=== PATIENT | male | born 1940 | race Caucasian/White ===

== ENCOUNTER 2018-02-08 01:29 | Emergency (ER) | payer MEDICARE ==
[~2018-02-08 01:29] MED LIST: ALPR-138 PO; LEVO75TA42 PO; LISI5 PO; TAB-TAB PO
[2018-02-08 01:31] VITALS: BP 200/84; PULSE 74; RESP 18; TEMP 97.5; O2SAT 99
[2018-02-08 02:18] VITALS: BP 209/92; PULSE 67; RESP 17; O2SAT 98
[2018-02-08 02:19] VITALS: BP 215/98; PULSE 74
[2018-02-08] MEDS ORDERED: LEVO75TA3 PO (02:23)
[2018-02-08] MEDS ORDERED: ALPR1TAB3 PO (02:23)
[2018-02-08] MEDS ORDERED: LISI10TA3 PO (02:23)
[2018-02-08] MEDS ORDERED: HYDR12.57 PO (02:23)
[2018-02-08] MEDS ORDERED: SIMV40TA PO (02:23)
--- NOTE | 2018-02-08 02:39 | PD ---
HPI Chief Complaint: Abdominal Pain Time Seen by Provider: 02:05 Travel History International Travel<30 days: No Contact w/Intl Traveler<30days: No Traveled to known affect area: No History of Present Illness HPI Patient is a 77-year-old male who 1130 tonight developed sudden onset of suprapubic pressure-like pain. It does not radiate it is not associated with dysuria he has moved his bowels in the waiting room without any complaints and no change in the pain he is not constipated he is no diarrhea he has no dysuria. He has a history of having renal stone many years ago which needed lithotripsy however he says the pain is very different. He has no history of diverticulitis. He has a history of CABG many years ago. He is only on lisinopril 5 mg and hydrochlorothiazide 12.5 mg and a statin otherwise he is a healthy 77-year-old male. Again localized pain suprapubic sudden onset constant for the last 3 and half hours nothing his change the pain nothing has made it better nothing has made it worse when he moved his bowels it did not change the pain PFSH Past Medical History Blood Disorders: No Cancer: Yes (SKIN) Cardiovascular Problems: Yes High Cholesterol: Yes Diabetes: No Diminished Hearing: No Endocrine: No Genitourinary: Yes Hypertension: Yes Immune Disorder: No Kidney Stones: Yes (LITHOTRIPSY X 3 LAST 2013) Musculoskeletal: No Neurologic: No Psychiatric: No Reproductive: No Respiratory: No Immunizations Current: Yes Radiation Therapy: Yes (SKIN CANCER 2010) Past Surgical History Abdominal Surgery: No Cardiac Surgery: Yes (2009 TRIPLE BYPASS) Coronary Artery Bypass Graft: Yes (02/05 X 3 VESSELS) Ear Surgery: Yes (cancer right ear lesion removed) Endocrine Surgery: No Eye Surgery: No Genitourinary Surgery: No Gynecologic Surgery: No Oral Surgery: Yes (dentures) Thoracic Surgery: No Other Surgery: Yes (hemroidectomy) Social History Alcohol Use: No Tobacco Use: No Substance Use: No Allergies-Medications (Allergen,Severity, Reaction): Coded Allergies: amlodipine (Unverified Allergy, Severe, 02/08/18) codeine (Unverified Allergy, Severe, 02/08/18) diphenhydramine (Unverified Allergy, Severe, 02/08/18) doxycycline (Unverified Allergy, Severe, 02/08/18) minocycline (Unverified Allergy, Severe, 02/08/18) simvastatin (Unverified Allergy, Severe, 02/08/18) tigecycline (Unverified Allergy, Severe, 02/08/18) cefaclor (Unverified Allergy, Unknown, hives, 02/08/18) epinephrine (Unverified Allergy, Unknown, 02/08/18) Reported Meds & Prescriptions Reported Meds & Active Scripts Active Percocet (Oxycodone-Acetaminophen) 5-325 mg Tab 1 Tab PO Q6H PRN Flagyl (Metronidazole) 500 Mg Tab 500 Mg PO TID Levaquin (Levofloxacin) 500 Mg Tablet 500 Mg PO DAILY Flomax (Tamsulosin HCl) 0.4 Mg Cap 0.4 Mg PO HS Reported Alprazolam 1 Mg Tab 1 Mg PO HS PRN Hydrochlorothiazide 12.5 Mg Cap 12.5 Mg PO DAILY Lisinopril 10 Mg Tab 10 Mg PO DAILY Levothyroxine (Levothyroxine Sodium) 75 Mcg Tab 75 Mcg PO DAILY Simvastatin 40 Mg Tab 40 Mg PO HS Review of Systems Except as stated in HPI: all other systems reviewed are Neg HENT: No: Headaches Cardiovascular: No: Chest Pain or Discomfort Gastrointestinal: Positive: Abdominal Pain Genitourinary: No: Urgency, Frequency, Dysuria, Hematuria Physical Exam Narrative GENERAL: Patient in mild distress abdomen pain SKIN: Warm and dry. HEAD: Atraumatic. Normocephalic. EYES: Pupils equal and round. No scleral icterus. No injection or drainage. ENT: No nasal bleeding or discharge. Mucous membranes pink and moist. NECK: Trachea midline. No JVD. CARDIOVASCULAR: Regular rate and rhythm. RESPIRATORY: No accessory muscle use. Clear to auscultation. Breath sounds equal bilaterally. GASTROINTESTINAL: Abdomen suprapubic tenderness distention and pain with percussion of the bladder area soft, distended. Hepatic and splenic margins not palpable. MUSCULOSKELETAL: Extremities without clubbing, cyanosis, or edema. No obvious deformities. NEUROLOGICAL: Awake and alert. No obvious cranial nerve deficits. Motor grossly within normal limits. Five out of 5 muscle strength in the arms and legs. Normal speech. PSYCHIATRIC: Appropriate mood and affect; insight and judgment normal. Data Data Last Documented VS Vital Signs Date Time Temp Pulse Resp B/P (MAP) Pulse Ox O2 Delivery O2 Flow Rate FiO2 02/08/18 06:47 02/08/18 05:17 65 14 97 Room Air 02/08/18 01:31 97.5 Orders Orders Complete Blood Count With Diff (02/08/18 02:07) Comprehensive Metabolic Panel (02/08/18 02:07) Urinalysis - C+S If Indicated (02/08/18 02:07) Iv Access Insert/Monitor (02/08/18 02:07) Oxygen Administration (02/08/18 02:07) Oximetry (02/08/18 02:07) Lipase (02/08/18 02:07) Sodium Chlorid 0.9% 500 Ml Inj (Ns 500 M (02/08/18 02:45) Ct Abd/Pel W/O Iv Contrast (02/08/18 ) Ketorolac Inj (Toradol Inj) (02/08/18 04:30) Urinary Catheter Insert/Apply (02/08/18 04:29) Levofloxacin 750 Mg Premix Inj (Levaquin (02/08/18 05:00) Metronidazole (Flagyl) (02/08/18 06:00) Ed Discharge Order (02/08/18 06:41) Labs Laboratory Tests Test 02/08/18 02:14 02/08/18 02:15 White Blood Count 9.9 TH/MM3 Red Blood Count 5.04 MIL/MM3 Hemoglobin 15.5 GM/DL Hematocrit 44.3 % Mean Corpuscular Volume 87.9 FL Mean Corpuscular Hemoglobin 30.7 PG Mean Corpuscular Hemoglobin Concent 34.9 % Red Cell Distribution Width 14.1 % Platelet Count 163 TH/MM3 Mean Platelet Volume 8.5 FL Neutrophils (%) (Auto) 72.0 % Lymphocytes (%) (Auto) 16.9 % Monocytes (%) (Auto) 8.5 % Eosinophils (%) (Auto) 2.3 % Basophils (%) (Auto) 0.3 % Neutrophils # (Auto) 7.1 TH/MM3 Lymphocytes # (Auto) 1.7 TH/MM3 Monocytes # (Auto) 0.8 TH/MM3 Eosinophils # (Auto) 0.2 TH/MM3 Basophils # (Auto) 0.0 TH/MM3 CBC Comment DIFF FINAL Differential Comment Blood Urea Nitrogen 14 MG/DL Creatinine 0.97 MG/DL Random Glucose 115 MG/DL Total Protein 7.3 GM/DL Albumin 3.6 GM/DL Calcium Level 8.6 MG/DL Alkaline Phosphatase 81 U/L Aspartate Amino Transf (AST/SGOT) 32 U/L Alanine Aminotransferase (ALT/SGPT) 32 U/L Total Bilirubin 0.5 MG/DL Sodium Level 142 MEQ/L Potassium Level 4.0 MEQ/L Chloride Level 108 MEQ/L Carbon Dioxide Level 26.9 MEQ/L Anion Gap 7 MEQ/L Estimat Glomerular Filtration Rate 75 ML/MIN Lipase 435 U/L Urine Color LIGHT-YELLOW Urine Turbidity CLEAR Urine pH 5.5 Urine Specific [place] 1.005 Urine Protein NEG mg/dL Urine Glucose (UA) NEG mg/dL Urine Ketones NEG mg/dL Urine Occult Blood TRACE Urine Nitrite NEG Urine Bilirubin NEG Urine Urobilinogen LESS THAN 2.0 MG/DL Urine Leukocyte Esterase NEG Urine RBC 1 /hpf Urine WBC 1 /hpf Urine Squamous Epithelial Cells <1 /hpf Microscopic Urinalysis Comment CULT NOT INDICATED MDM Medical Decision Making Medical Screen Exam Complete: Yes Emergency Medical Condition: Yes Differential Diagnosis UTI vs renal stone vs obstructing stone vs BPH obstruction vs bladder neck spasm Narrative Course Pt has CT 2mm left ureter stone and mild diverticulitis and very distended bladder seen on CT . pt lebron gets out 1000 ml of urine and pt feels much better , pt urine not infected levaquin and flagyl IV for early mild diverticultis . Pt placed with leg bag to draining lebron and home with [facility] name and number and follow up .. pt agree with the plan of outpt treatment at this time and would like to try as out pt follow up . Told to return to ER immediately for complication or intractable pain or lack of drainage into urine bag. pt agrees Diagnosis Primary Impression: Urinary retention Additional Impressions: Diverticulitis of colon Kidney stone Referrals: Chilo Rodriguez MD Patient Instructions: Diverticulitis (ED), General Instructions, Kidney Stones (ED), Urinary Retention in Men (ED) Additional Instructions: Use the urine as instructed by the nurse. Call Dr. Rodriguez urology for follow- up. Take the antibiotics for 10 days. Return to the ER for any complications or inability to get follow-up with urology Scripts Oxycodone-Acetaminophen (Percocet) 5-325 mg Tab 1 TAB PO Q6H Y for PAIN, #12 TAB 0 Refills Prov: Joseph Gomez MD 02/08/18 Metronidazole (Flagyl) 500 Mg Tab 500 MG PO TID for Infection, #30 TAB 0 Refills Prov: Joseph Gomez MD 02/08/18 Levofloxacin (Levaquin) 500 Mg Tablet 500 MG PO DAILY for Infection, #10 TAB 0 Refills Prov: Joseph Gomez MD 02/08/18 Tamsulosin (Flomax) 0.4 Mg Cap 0.4 MG PO HS for Manage Prostate Problems, #12 CAP 0 Refills Prov: Joseph Gomez MD 02/08/18 Disposition: 01 DISCHARGE HOME Condition: Good Joseph Gomez MD Feb 08, 2018 02:39
[2018-02-08 02:43] LABS: BILIRUBIN, URINE NEG (NEG); BLOOD, URINE TRACE (NEG); GLUCOSE,URINE NEG (NEG); KETONE, URINE NEG (NEG); NITRITE,URINE NEG (NEG); PH, URINE 5.5 (5.0-8.5); SQUAMOUS EPITHELIAL CELL URINE <1 /hpf (0-5); URINE COLOR LIGHT-YELLOW (YELLW/STRAW); URINE LEUKOCYTE ESTERASE NEG (NEG)
[2018-02-08] MEDS ORDERED: SODIUM CHLORID 0.9% 500 ML INJ 500 ML IV ONE (02:45)
[2018-02-08 02:50] LABS: AUTOMATED NEUTROPHIL # 7.1 TH/MM3 (1.8-7.7); BASOPHIL % 0.3 % (0.0-2.0); EOSINOPHIL # 0.2 TH/MM3 (0-0.4); EOSINOPHIL % 2.3 % (0.0-4.0); HEMATOCRIT 44.3 % (39.0-51.0); HEMOGLOBIN 15.5 GM/DL (13.0-17.0); LYMPH % 16.9 % (9.0-44.0); LYMPHOCYTE # 1.7 TH/MM3 (1.0-4.8); MEAN CELL VOLUME 87.9 FL (80.0-100.0); MEAN CORPUSCULAR HEMOGLOBIN 30.7 PG (27.0-34.0); MEAN CORPUSCULAR HGB CONC 34.9 % (32.0-36.0); MEAN PLATELET VOLUME 8.5 FL (7.0-11.0); MONO % 8.5 % (0.0-8.0); MONOCYTE # 0.8 TH/MM3 (0-0.9); PLATELET COUNT 163 TH/MM3 (150-450); RED BLOOD COUNT 5.04 MIL/MM3 (4.50-5.90); RED CELL DISTRIBUTION WIDTH 14.1 % (11.6-17.2); WHITE BLOOD COUNT 9.9 TH/MM3 (4.0-11.0)
[2018-02-08 03:02] LABS: ALBUMIN 3.6 GM/DL (3.4-5.0); ALT (GPT) 32 U/L (12-78); AST (GOT) 32 U/L (15-37); BICARBONATE 26.9 MEQ/L (21.0-32.0); BLOOD UREA NITROGEN 14 MG/DL (7-18); CALCIUM 8.6 MG/DL (8.5-10.1); CHLORIDE 108 MEQ/L (98-107); CREATININE 0.97 MG/DL (0.60-1.30); GLOMERULAR FILTRATION RATE 75 ML/MIN (>89); GLUCOSE,RANDOM 115 MG/DL (74-106); SODIUM (NA) 142 MEQ/L (136-145)
[2018-02-08 03:04] LABS: ALKALINE PHOSPHATASE 81 U/L (45-117); TOTAL BILIRUBIN ADULT 0.5 MG/DL (0.2-1.0); TOTAL PROTEIN 7.3 GM/DL (6.4-8.2)
--- NOTE | 2018-02-08 03:27 | RADRPT ---
EXAM DATE/TIME: 02/08/2018 03:00 [facility] COMPARISON: CT ABDOMEN & PELVIS W/O CONTRAST, May 04, 2015, 11:14. INDICATIONS : Lower abdomen pain. ORAL CONTRAST: No oral contrast ingested. RADIATION DOSE: 11.09 CTDIvol (mGy) MEDICAL HISTORY : Hypertension. Renal calculi. SURGICAL HISTORY : CABG ENCOUNTER: Initial ACUITY: 1 day PAIN SCALE: 7/10 LOCATION: lower quadrant abdomen TECHNIQUE: Volumetric scanning of the abdomen and pelvis was performed. Using automated exposure control and ad justment of the mA and/or kV according to patient size, radiation dose was kept as low as reasonably achievable to obtain optimal diagnostic quality images. DICOM format image data is available electro nically for review and comparison. FINDINGS: LOWER LUNGS: The visualized lower lungs are clear. LIVER: Visualized portions are grossly unremarkable. SPLEEN: Portal and size. Scattered granulomatous calcifications. PANCREAS: Within normal limits. KIDNEYS: There is a 2 mm stone in the left ureteropelvic junction region. Miniscule calculi present in the low er pole collecting system of both kidneys. ADRENAL GLANDS: Within normal limits. VASCULAR: There is no aortic aneurysm. BOWEL/MESENTERY: There is prominent diverticular involvement of the distal colon. There are mild inflammatory changes adjacent to the sigmoid colon in the mid anterior pelvis with slight indurative changes extending int o the root of the mesentery. There is no evidence of obstruction. No extraluminal gas or fluid is dinah ntified. ABDOMINAL WALL: Within normal limits. RETROPERITONEUM: There is no lymphadenopathy. BLADDER: No wall thickening or mass. REPRODUCTIVE: Dense calcifications in the prostate is mildly enlarged INGUINAL: There is no lymphadenopathy or hernia. MUSCULOSKELETAL: Within normal limits for patient age. CONCLUSION: Uncomplicated sigmoid diverticulitis Tiny bilateral kidney stones including a miniscule stone at the left ureteropelvic junction Frankie Zuñiga MD on February 08, 2018 at 3:19 Board Certified Radiologist. This report was verified electronically.
[2018-02-08 04:24] VITALS: BP 221/100; PULSE 75; RESP 16; O2SAT 99
[2018-02-08] MEDS ORDERED: KETOROLAC TROMETHAMINE 30 MG/ML (IVP) VIAL IV PUSH ONE (04:30)
[2018-02-08] MEDS ORDERED: LEVOFLOXACIN 750 MG PREMIX INJ 150 ML IV ONE (05:00)
[2018-02-08 05:17] VITALS: BP 168/71; PULSE 65; RESP 14; O2SAT 97
[2018-02-08] MEDS ORDERED: metroNIDAZOLE 500 MG TAB PO ONE (06:00)
[2018-02-08] MEDS ORDERED: METR-1 PO (06:09)
[2018-02-08] MEDS ORDERED: LEVA500T33 PO (06:09)
[2018-02-08] MEDS ORDERED: TAMS5CAP PO (06:09)
[2018-02-08] MEDS ORDERED: PERC5TAB12 PO (06:10)
== END 2018-02-08 10:00 | disposition home or self-care (01) ==
LOC: NEPC 01:29
DX: R33.9 Retention of urine, unspecified (principal); K57.32 Diverticulitis of large intestine without perforation or abscess without bleeding; E78.00 Pure hypercholesterolemia, unspecified; I10 Essential (primary) hypertension; Z87.442 Personal history of urinary calculi; Z95.1 Presence of aortocoronary bypass graft; Z85.828 Personal history of other malignant neoplasm of skin; Z88.8 Allergy status to other drugs, medicaments and biological substances; Z88.5 Allergy status to narcotic agent
CPT/HCPCS: 51702; 74176; 80053; 81001; 83690; 85025; 96361; 96365; 96366; 96375; 99284; J1885; J1956; J7040

== ENCOUNTER 2018-04-07 19:45 | Emergency (ER) | payer MEDICARE ==
[~2018-04-07] VITALS: Ht 157.5 cm; Wt 68.0 kg
[~2018-04-07 19:45] MED LIST changes: -ALPR-138 PO; +ALPR1TAB3 PO; +HYDR12.57 PO; +LEVA500T33 PO; +LEVO75TA3 PO; -LEVO75TA42 PO; +LISI10TA3 PO; -LISI5 PO; +METR-1 PO; +PERC5TAB12 PO; +SIMV40TA PO; -TAB-TAB PO; +TAMS5CAP PO
[2018-04-07] MEDS ORDERED: ASPIRIN 81 MG CHEW TAB PO ONE (20:00)
[2018-04-07] MEDS ORDERED: SODIUM CHLORIDE 0.9% FLUSH 10 ML FLUSH IVF PRN (20:00)
[2018-04-07] MEDS ORDERED: SODIUM CHLORID 0.9% 500 ML INJ 500 ML IV ONE (20:00)
[2018-04-07 20:01] VITALS: BP 200/84; PULSE 77; RESP 12; TEMP 98.4; O2SAT 99
[2018-04-07 20:07] VITALS: RESP 12; O2SAT 99
[2018-04-07] MEDS ORDERED: CIPR-9 PO (20:09)
--- NOTE | 2018-04-07 20:11 | PD ---
HPI Chief Complaint: Cardiac Complaint Time Seen by Provider: 19:48 Travel History International Travel<30 days: No Contact w/Intl Traveler<30days: No Traveled to known affect area: No History of Present Illness HPI Patient is a 78-year-old male with history of hypertension, hyperlipidemia, coronary artery disease with history of previous bypass surgery, presents to the emergency room with complaints of rapid heart rate. Patient reports that prior to coming to the ER, he was watching TV, reports that all of a sudden, he felt his heart racing. Patient reports that he felt short of breath with the symptoms, reports his symptoms resolved once fire rescue arrived on scene. Patient currently follows template layout worker Dr Quiroz, reports that he was recently seen by him and was due for a stress test but developed diverticulitis and is currently taking ciprofloxacin for this. Patient reports that he was going to reschedule his stress test after he completed antibiotics for his diverticulitis. Patient with no chest pain or shortness of breath this time, patient with no signs of nausea or vomiting. Patient reports that he does feel anxious, he does take Xanax for his anxiety. Reports that he has not been getting along with his recently which leads to anxiety attacks. Reports " I think that I may be anxious." Besides feeling all "worked up", patient with no other complaints at this time. PFSH Past Medical History Blood Disorders: No Cancer: Yes (SKIN) Cardiovascular Problems: Yes High Cholesterol: Yes Diabetes: No Diminished Hearing: No Endocrine: No Genitourinary: Yes Hypertension: Yes Immune Disorder: No Kidney Stones: Yes (LITHOTRIPSY X 3 LAST 2013) Musculoskeletal: No Neurologic: No Psychiatric: No Reproductive: No Respiratory: No Immunizations Current: Yes Radiation Therapy: Yes (SKIN CANCER 2010) Past Surgical History Abdominal Surgery: No Cardiac Surgery: Yes (2010 TRIPLE BYPASS) Coronary Artery Bypass Graft: Yes (02/05 X 3 VESSELS) Ear Surgery: Yes (cancer right ear lesion removed) Endocrine Surgery: No Eye Surgery: No Genitourinary Surgery: No Gynecologic Surgery: No Oral Surgery: Yes (dentures) Thoracic Surgery: No Other Surgery: Yes (hemroidectomy) Social History Alcohol Use: No Tobacco Use: No Substance Use: No Allergies-Medications (Allergen,Severity, Reaction): Coded Allergies: amlodipine (Unverified Allergy, Severe, 02/08/18) codeine (Unverified Allergy, Severe, 02/08/18) diphenhydramine (Unverified Allergy, Severe, 02/08/18) doxycycline (Unverified Allergy, Severe, 02/08/18) minocycline (Unverified Allergy, Severe, 02/08/18) simvastatin (Unverified Allergy, Severe, 02/08/18) tigecycline (Unverified Allergy, Severe, 02/08/18) cefaclor (Unverified Allergy, Unknown, hives, 02/08/18) epinephrine (Unverified Allergy, Unknown, 02/08/18) Reported Meds & Prescriptions Reported Meds & Active Scripts Active Reported Cipro (Ciprofloxacin HCl) 500 Mg Tab 500 Mg PO BID Alprazolam 1 Mg Tab 1 Mg PO HS PRN Lisinopril 10 Mg Tab 10 Mg PO DAILY Levothyroxine (Levothyroxine Sodium) 75 Mcg Tab 75 Mcg PO DAILY Simvastatin 40 Mg Tab 40 Mg PO HS Review of Systems General / Constitutional: No: Fever Eyes: No: Visual changes HENT: No: Headaches Cardiovascular: Positive: Irregular Rhythm, Tachycardia, No: Chest Pain or Discomfort Respiratory: Positive: Shortness of Breath Gastrointestinal: No: Abdominal Pain Genitourinary: No: Dysuria Musculoskeletal: No: Pain Skin: No Rash Neurologic: No: Weakness Psychiatric: No: Depression Endocrine: No: Polydipsia Hematologic/Lymphatic: No: Easy Bruising Physical Exam Narrative GENERAL: NAD SKIN: Focused skin assessment warm/dry. HEAD: Atraumatic. Normocephalic. EYES: Pupils equal and round. No scleral icterus. No injection or drainage. ENT: No nasal bleeding or discharge. Mucous membranes pink and moist. NECK: Trachea midline. No JVD. CARDIOVASCULAR: Regular rate and rhythm. No murmur appreciated. RESPIRATORY: No accessory muscle use. Clear to auscultation. Breath sounds equal bilaterally. GASTROINTESTINAL: Abdomen soft, non-tender, nondistended. Hepatic and splenic margins not palpable. MUSCULOSKELETAL: No obvious deformities. No clubbing. No cyanosis. No edema. NEUROLOGICAL: Awake and alert. No obvious cranial nerve deficits. Motor grossly within normal limits. Normal speech. PSYCHIATRIC: Anxious mood and affect; insight and judgment normal. Data Data Last Documented VS Vital Signs Date Time Temp Pulse Resp B/P (MAP) Pulse Ox O2 Delivery O2 Flow Rate FiO2 04/07/18 22:12 61 18 214/81 (125) 97 Room Air 04/07/18 20:01 98.4 Orders Orders Electrocardiogram (04/07/18 ) Electrocardiogram (04/07/18 19:55) B-Type Natriuretic Peptide (04/07/18 19:55) Ckmb (Isoenzyme) Profile (04/07/18 19:55) Complete Blood Count With Diff (04/07/18 19:55) Comprehensive Metabolic Panel (04/07/18 19:55) Magnesium (Mg) (04/07/18 19:55) Prothrombin Time / Inr (Pt) (04/07/18 19:55) Act Partial Throm Time (Ptt) (04/07/18 19:55) Troponin I (04/07/18 19:55) Lipase (04/07/18 19:55) Chest, Single Ap (04/07/18 19:55) Ecg Monitoring (04/07/18 19:55) Iv Access Insert/Monitor (04/07/18 19:55) Oximetry (04/07/18 19:55) Aspirin Chew (Aspirin Chew) (04/07/18 20:00) Sodium Chloride 0.9% Flush (Ns Flush) (04/07/18 20:00) Sodium Chlorid 0.9% 500 Ml Inj (Ns 500 M (04/07/18 20:00) CKMB (04/07/18 20:20) CKMB% (04/07/18 20:20) Clonidine (Catapres) (04/07/18 22:15) Labs Laboratory Tests Test 04/07/18 20:20 White Blood Count 8.1 TH/MM3 Red Blood Count 4.88 MIL/MM3 Hemoglobin 15.1 GM/DL Hematocrit 43.0 % Mean Corpuscular Volume 88.2 FL Mean Corpuscular Hemoglobin 31.0 PG Mean Corpuscular Hemoglobin Concent 35.1 % Red Cell Distribution Width 13.9 % Platelet Count 164 TH/MM3 Mean Platelet Volume 8.9 FL Neutrophils (%) (Auto) 55.9 % Lymphocytes (%) (Auto) 31.9 % Monocytes (%) (Auto) 9.2 % Eosinophils (%) (Auto) 2.3 % Basophils (%) (Auto) 0.7 % Neutrophils # (Auto) 4.5 TH/MM3 Lymphocytes # (Auto) 2.6 TH/MM3 Monocytes # (Auto) 0.7 TH/MM3 Eosinophils # (Auto) 0.2 TH/MM3 Basophils # (Auto) 0.1 TH/MM3 CBC Comment DIFF FINAL Differential Comment Prothrombin Time 10.2 SEC Prothromb Time International Ratio 1.0 RATIO Activated Partial Thromboplast Time 22.8 SEC Blood Urea Nitrogen 16 MG/DL Creatinine 0.99 MG/DL Random Glucose 106 MG/DL Total Protein 7.3 GM/DL Albumin 3.5 GM/DL Calcium Level 8.5 MG/DL Magnesium Level 2.1 MG/DL Alkaline Phosphatase 79 U/L Aspartate Amino Transf (AST/SGOT) 60 U/L Alanine Aminotransferase (ALT/SGPT) 45 U/L Total Bilirubin 0.5 MG/DL Sodium Level 140 MEQ/L Potassium Level 4.1 MEQ/L Chloride Level 108 MEQ/L Carbon Dioxide Level 18.9 MEQ/L Anion Gap 13 MEQ/L Estimat Glomerular Filtration Rate 73 ML/MIN Total Creatine Kinase 116 U/L Creatine Kinase MB 1.4 NG/ML Troponin I LESS THAN 0.02 NG/ML B-Type Natriuretic Peptide 13 PG/ML Lipase 126 U/L [facility] Medical Decision Making Medical Screen Exam Complete: Yes Emergency Medical Condition: Yes Medical Record Reviewed: Yes Interpretation(s) EKG at 1858: NSR at 70bpm, qt/qtc: 380/402, nonspecific st and t wave changes ( changes from prior ekg) Differential Diagnosis ACS, arrhythmia, electrolyte abnormality, PE, anxiety reaction Narrative Course Patient is a 78-year-old male who presents the emergency room with complaints of palpitations prior to arrival to the emergency room. Patient currently symptom-free at this time. During the course of the patients emergency department visit, the patients history, examination, and differential diagnosis were reviewed with the patient. The patient was placed on a color television console monitor with oximetry and frequent blood pressure monitoring. The patient had an IV access obtained and blood work sent for analysis. The patient was initially provided IVF. The patients laboratory studies were reviewed and remarkable for Laboratory Tests Test 04/07/18 20:20 White Blood Count 8.1 TH/MM3 (4.0-11.0) Red Blood Count 4.88 MIL/MM3 (4.50-5.90) Hemoglobin 15.1 GM/DL (13.0-17.0) Hematocrit 43.0 % (39.0-51.0) Mean Corpuscular Volume 88.2 FL (80.0-100.0) Mean Corpuscular Hemoglobin 31.0 PG (27.0-34.0) Mean Corpuscular Hemoglobin Concent 35.1 % (32.0-36.0) Red Cell Distribution Width 13.9 % (11.6-17.2) Platelet Count 164 TH/MM3 (150-450) Mean Platelet Volume 8.9 FL (7.0-11.0) Neutrophils (%) (Auto) 55.9 % (16.0-70.0) Lymphocytes (%) (Auto) 31.9 % (9.0-44.0) Monocytes (%) (Auto) 9.2 % (0.0-8.0) Eosinophils (%) (Auto) 2.3 % (0.0-4.0) Basophils (%) (Auto) 0.7 % (0.0-2.0) Neutrophils # (Auto) 4.5 TH/MM3 (1.8-7.7) Lymphocytes # (Auto) 2.6 TH/MM3 (1.0-4.8) Monocytes # (Auto) 0.7 TH/MM3 (0-0.9) Eosinophils # (Auto) 0.2 TH/MM3 (0-0.4) Basophils # (Auto) 0.1 TH/MM3 (0-0.2) CBC Comment DIFF FINAL Differential Comment Prothrombin Time 10.2 SEC (9.8-11.6) Prothromb Time International Ratio 1.0 RATIO Activated Partial Thromboplast Time 22.8 SEC (24.3-30.1) Blood Urea Nitrogen 16 MG/DL (7-18) Creatinine 0.99 MG/DL (0.60-1.30) Random Glucose 106 MG/DL (74-106) Total Protein 7.3 GM/DL (6.4-8.2) Albumin 3.5 GM/DL (3.4-5.0) Calcium Level 8.5 MG/DL (8.5-10.1) Magnesium Level 2.1 MG/DL (1.5-2.5) Alkaline Phosphatase 79 U/L (45-117) Aspartate Amino Transf (AST/SGOT) 60 U/L (15-37) Alanine Aminotransferase (ALT/SGPT) 45 U/L (12-78) Total Bilirubin 0.5 MG/DL (0.2-1.0) Sodium Level 140 MEQ/L (136-145) Potassium Level 4.1 MEQ/L (3.5-5.1) Chloride Level 108 MEQ/L (98-107) Carbon Dioxide Level 18.9 MEQ/L (21.0-32.0) Anion Gap 13 MEQ/L (5-15) Estimat Glomerular Filtration Rate 73 ML/MIN (>89) Total Creatine Kinase 116 U/L (39-308) Creatine Kinase MB 1.4 NG/ML (0.5-3.6) Troponin I LESS THAN 0.02 NG/ML B-Type Natriuretic Peptide 13 PG/ML (0-100) Lipase 126 U/L (73-393) Radiology studies were reviewed and remarkable for Last Impressions Chest X-Ray 04/07/181954 Signed Impressions: CONCLUSION: Postoperative median sternotomy and CABG. No active disease. All labs and all studies were reviewed, patient reports that he has resolution of palpitations while in the ER. He does have history of pvc's and severe anxiety. Patient adamantly denies having chest pain at this time, reports that he is feeling better. I did encourage patient to call his template layout worker in the morning to arrange his stress test. Should he develop any chest pain or shortness of breath, I did encourage patient to return to the hospital for reevaluation of his symptoms. Patient is hypertensive in the emergency room, he does take lisinopril 40 mg. Patient reports that his blood pressure is always elevated when he feels "stressed out and anxious." Will give patient a dose of clonidine, he will monitor his blood pressure carefully. Diagnosis Primary Impression: Heart palpitations Additional Impressions: Anxiety Hypertension Patient Instructions: General Instructions Additional Instructions: Please provide patient with a copy of their lab work and studies at discharge* * Please follow up with your primary care doctor in 2-3 days Return to the ER if symptoms worsen or progress Return to the ER as needed Please call your template layout worker first thing in the morning for earliest follow up , you will need to make an appointment for your stress test Please monitor your blood pressure Disposition: 01 DISCHARGE HOME Condition: Stable Kym Stephen DO Apr 07, 2018 20:11
--- NOTE | 2018-04-07 20:33 | RADRPT ---
EXAM DATE: 04/07/2018 8:30 PM EDT AGE/SEX: 78 years / Male INDICATIONS: Bilateral chest pain and shortness of breath. CLINICAL DATA: This is the patient's initial encounter. Patient reports that signs and symptoms have been present for 1 day and indicates a pain score of 5/10. MEDICAL/SURGICAL HISTORY: None. CABG. COMPARISON: No prior exams available for comparison. FINDINGS: A single AP view of the chest demonstrates the lungs to be symmetrically aerated without evidence of mass, infiltrate or effusion. The cardiomediastinal contours are unremarkable. Postoperative median sternotomy and CABG. Osseous structures are intact. CONCLUSION: Postoperative median sternotomy and CABG. No active disease. Electronically signed by: Star Matthew MD 04/07/2018 8:32 PM EDT
[2018-04-07 20:45] LABS: AUTOMATED NEUTROPHIL # 4.5 TH/MM3 (1.8-7.7); BASOPHIL # 0.1 TH/MM3 (0-0.2); BASOPHIL % 0.7 % (0.0-2.0); EOSINOPHIL # 0.2 TH/MM3 (0-0.4); EOSINOPHIL % 2.3 % (0.0-4.0); HEMOGLOBIN 15.1 GM/DL (13.0-17.0); LYMPH % 31.9 % (9.0-44.0); LYMPHOCYTE # 2.6 TH/MM3 (1.0-4.8); MEAN CELL VOLUME 88.2 FL (80.0-100.0); MEAN CORPUSCULAR HGB CONC 35.1 % (32.0-36.0); MEAN PLATELET VOLUME 8.9 FL (7.0-11.0); MONO % 9.2 % (0.0-8.0); MONOCYTE # 0.7 TH/MM3 (0-0.9); NEUT % 55.9 % (16.0-70.0); PLATELET COUNT 164 TH/MM3 (150-450); RED BLOOD COUNT 4.88 MIL/MM3 (4.50-5.90); RED CELL DISTRIBUTION WIDTH 13.9 % (11.6-17.2); WHITE BLOOD COUNT 8.1 TH/MM3 (4.0-11.0)
[2018-04-07 20:57] LABS: PROTHROMBIN TIME - PATIENT 10.2 SEC (9.8-11.6)
[2018-04-07 21:08] LABS: ALBUMIN 3.5 GM/DL (3.4-5.0); AST (GOT) 60 U/L (15-37); BICARBONATE 18.9 MEQ/L (21.0-32.0); BLOOD UREA NITROGEN 16 MG/DL (7-18); CALCIUM 8.5 MG/DL (8.5-10.1); CHLORIDE 108 MEQ/L (98-107); CREATININE 0.99 MG/DL (0.60-1.30); GLOMERULAR FILTRATION RATE 73 ML/MIN (>89); GLUCOSE,RANDOM 106 MG/DL (74-106); MAGNESIUM 2.1 MG/DL (1.5-2.5); SODIUM (NA) 140 MEQ/L (136-145)
[2018-04-07 21:26] LABS: ALKALINE PHOSPHATASE 79 U/L (45-117); ALT (GPT) 45 U/L (12-78); TOTAL BILIRUBIN ADULT 0.5 MG/DL (0.2-1.0); TOTAL PROTEIN 7.3 GM/DL (6.4-8.2); TROPONIN I LESS THAN 0.02 NG/ML (0.02-0.05)
[2018-04-07 22:07] VITALS: BP 175/73; PULSE 60; RESP 15; O2SAT 97
[2018-04-07 22:12] VITALS: BP 214/81; PULSE 61; RESP 18; O2SAT 97
[2018-04-07] MEDS ORDERED: cloNIDine HCL 0.1 MG TAB PO ONE (22:15)
[2018-04-07 22:41] VITALS: BP 182/77; PULSE 62; RESP 16; O2SAT 98
--- NOTE | 2018-04-08 14:55 | EKG ---
Date Performed: 04/07/2018 Time Performed: 18:58:19 PTAGE: 78 years EKG: Sinus rhythm WITH SINUS ARRHYTHMIA MODERATE INTRAVENTRICULAR CONDUCTION DELAY NONSPECIFIC ST & T-WAVE ABNORMALITY BORDERLINE ECG Since the PREVIOUS TRACING , no significant change noted PREVIOUS TRACIN05/04/2015 10.30 DOCTOR: Alfredo Fitzpatrick Interpretating Date/Time 04/08/2018 14:51:52
== END 2018-04-07 23:00 | disposition home or self-care (01) ==
LOC: NEPE 19:45
DX: R00.2 Palpitations (principal); F41.9 Anxiety disorder, unspecified; R94.31 Abnormal electrocardiogram [ECG] [EKG]; I10 Essential (primary) hypertension; R06.02 Shortness of breath; E78.00 Pure hypercholesterolemia, unspecified; Z87.442 Personal history of urinary calculi; Z85.828 Personal history of other malignant neoplasm of skin; Z95.1 Presence of aortocoronary bypass graft; Z88.5 Allergy status to narcotic agent
CPT/HCPCS: 71045; 80053; 82550; 82552; 83690; 83735; 83880; 84484; 85025; 85610; 85730; 93005; 99285; J7040